=== PATIENT | male | born 1995 ===

== ENCOUNTER 2019-01-23 16:38 | Emergency (ER) | payer OTHER ==
[2019-01-23 17:57] VITALS: RESP 18
--- NOTE | 2019-01-23 18:14 | XR ---
EXAMINATION: XR chest 2V DATE AND TIME: 01/23/2019 6:05 PM CLINICAL INDICATION: PHH; cough TECHNIQUE: Departmental protocol COMPARISON: None FINDINGS: The lungs are clear. The pleural spaces are negative. The cardiac silhouette is not enlarged. The remainder of the mediastinal silhouette is unremarkable. The skeletal structures and soft tissues are negative for acute findings. IMPRESSION: NO ACUTE PROCESS.
--- NOTE | 2019-01-23 21:22 | ED ---
General Adult HPI - General Chief complaint: Upper Respiratory Infection Stated complaint: poss pneumonia Time Seen by Provider: 01/23/19 21:07 Source: patient Mode of arrival: ambulatory Limitations: language barrier - History of Present Illness Initial comments: 23-year-old male presenting to the emergency department for hemoptysis. Patient states that over the last 3 days he has had a cough. Today he coughed up a small amount of blood, which worsened later in the afternoon. He admits to pleuritic chest pain and shortness of breath while coughing. He denies any history of DVT/PE, recent surgery, active cancer, history of HI, history of easy bleeding, any blood thinner use. Patient states she's also been having intermittent abdominal pain and has a history of pancreatitis secondary to alcohol abuse. He is currently in rehab for his alcoholism. - Related Data Home Medications Medication Instructions Recorded Confirmed Acetaminophen Tab [Tylenol Tab] 650 mg PO Q4H PRN 01/23/19 01/23/19 Chlorpheniramine Maleate 4 mg PO Q4H PRN 01/23/19 01/23/19 [Chlor-Trimeton] Ibuprofen [Motrin] 600 mg PO Q6H PRN 01/23/19 01/23/19 Multivitamins, Thera [Multivitamin 1 tab PO DAILY@1330 01/23/19 01/23/19 (formulary)] Thiamine HCl [Vitamin B-1] 100 mg PO DAILY@1330 01/23/19 01/23/19 guaiFENesin [guaiFENesin Oral 200 mg PO Q4H PRN 01/23/19 01/23/19 Solution] traZODone HCL 50 - 150 mg PO HS 01/23/19 01/23/19 Previous Rx's Medication Instructions Recorded Doxycycline Hyclate 100 mg PO DAILY 7 Days #14 tab 01/23/19 Nicotine 21Mg/24Hr Patch [Habitrol] 1 each TRANSDERM DAILY #30 patch 01/23/19 Allergies Allergy/AdvReac Type Severity Reaction Status Date / Time No Known Allergies Allergy Verified 01/23/19 22:44 Review of Systems ROS Statement: Those systems with pertinent positive or pertinent negative responses have been documented in the HPI. Review of Systems Constitutional: Denies fever, chills Eyes: Denies change in vision, Denies pain Ears, nose, mouth, throat: Denies headaches, Denies sore throat Cardiovascular: Denies chest pain. Denies palpitations Respiratory: Positive shortness of breath, Positive cough Gastrointestinal: Denies abdominal pain. Denies nausea, vomiting, diarrhea. Genitourinary: Denies hematuria, Denies infections Musculoskeletal: Denies pain, Denies swelling Integumentary: Denies rash Neurological: Denies headache, focal weakness, focal numbness Psychiatric: Denies anxiety, Denies depression Hematologic/Lymphatic: Denies easy bleeding or bruising ROS Other: All systems not noted in ROS Statement are negative. Past Medical History Additional Past Medical History / Comment(s): pancreatitis, liver inflammation History of Any Multi-Drug Resistant Organisms: None Reported Past Psychological History: No Psychological Hx Reported Smoking Status: Current every day smoker Past Alcohol Use History: Abuse, Daily Past Drug Use History: Cocaine General Exam - General Exam Comments Initial Comments: General: Awake, alert, No acute Distress HENT: Normocephalic. Atraumatic Eyes: PERRL. EOMI. No scleral icterus. No injected conjunctiva Neck: Full ROM Chest/Lungs: Clear to auscultation bilaterally. No wheezing, rhonchi, or rales Cardiac: Regular rate, rhythm. No murmurs or rubs Abdomen/GI: Soft, nontender, nondistended. No rebound, guarding, or rigidity. Musculoskeletal: Full ROM Skin: Warm, dry, intact Neurologic: A/Ox3, no weakness, no sensory deficit, no abnormal gait, no coordination deficit Limitations: language barrier Course Vital Signs 01/23/19 01/23/19 01/24/19 17:53 22:57 00:04 Temperature 98.3 F 97.9 F Pulse Rate 75 78 Respiratory 18 18 18 Rate Blood Pressure 106/51 140/82 O2 Sat by Pulse 100 98 Oximetry Medical Decision Making - Medical Decision Making 23 yoM presenting with hemoptysis. Initial exam the patient is awake, alert, no acute distress. VSS. Patient's auditory workup was unremarkable. His CT PE was positive for a left lower lobe infiltrate. The patient was switched from the amoxicillin prescribed by another physician and placed on doxycycline. He was also counseled on the importance of tobacco cessation and was given a perception for nicotine patches. While in the department the patient had no episodes of hemoptysis. His hemoglobin was stable. He had no respiratory distress. At this time the patient is stable for outpatient treatment of his community-acquired pneumonia. He is a monitored facility and they understand return to ER instructions.No further emergent workup indicated. The patient was given return to ED instructions. They were instructed to follow up with their primary care provider. Stable for discharge at this time. - Lab Data Result diagrams: 01/23/19 21:36 01/23/19 21:36 Lab Results 01/23/19 01/23/19 Range/Units 21:36 21:36 WBC 8.1 (3.8-10.6) k/uL RBC 5.15 (4.30-5.90) m/uL Hgb 15.7 (13.0-17.5) gm/dL Hct 47.3 (39.0-53.0) % MCV 91.8 (80.0-100.0) fL MCH 30.4 (25.0-35.0) pg MCHC 33.1 (31.0-37.0) g/dL RDW 12.9 (11.5-15.5) % Plt Count 314 (150-450) k/uL Neutrophils % 43 % Lymphocytes % 27 % Monocytes % 7 % Eosinophils % 18 % Basophils % 1 % Neutrophils # 3.5 (1.3-7.7) k/uL Lymphocytes # 2.2 (1.0-4.8) k/uL Monocytes # 0.6 (0-1.0) k/uL Eosinophils # 1.4 H (0-0.7) k/uL Basophils # 0.1 (0-0.2) k/uL Sodium 140 (137-145) mmol/L Potassium 4.2 (3.5-5.1) mmol/L Chloride 102 (98-107) mmol/L Carbon Dioxide 29 (22-30) mmol/L Anion Gap 9 mmol/L BUN 7 L (9-20) mg/dL Creatinine 0.65 L (0.66-1.25) mg/dL Est GFR (CKD-EPI)AfAm >90 (>60 ml/min/1.73 sqM) Est GFR (CKD-EPI)NonAf >90 (>60 ml/min/1.73 sqM) Glucose 86 (74-99) mg/dL Calcium 9.6 (8.4-10.2) mg/dL Total Bilirubin 0.6 (0.2-1.3) mg/dL Conjugated Bilirubin 0.0 (0.0-0.3) mg/dL Unconjugated Bilirubin 0.5 (0.0-1.1) mg/dL Delta Bilirubin 0.1 (0.0-0.2) mg/dL AST 31 (17-59) U/L ALT 27 (21-72) U/L Alkaline Phosphatase 125 (38-126) U/L Total Protein 7.9 (6.3-8.2) g/dL Albumin 4.8 (3.5-5.0) g/dL Lipase 18 L (23-300) U/L Disposition Clinical Impression: Pneumonia Disposition: HOME SELF-CARE Condition: Good Instructions (If sedation given, give patient instructions): Bacterial Pneumonia (ED) Prescriptions: Doxycycline Hyclate 100 mg PO DAILY 7 Days #14 tab Nicotine 21Mg/24Hr Patch [Habitrol] 1 each TRANSDERM DAILY #30 patch Is patient prescribed a controlled substance at d/c from ED?: No Referrals: None,Stated [Primary Care Provider] - 1-2 days Rama Lopez MD [REFERRING] - 1-2 days
[2019-01-23 21:56] LABS: Basophils # (A) 0.1 k/uL (0-0.2); Basophils % (A) 1 %; Eosinophils # (A) 1.4 k/uL (0-0.7); Eosinophils % (A) 18 %; HCT 47.3 % (39.0-53.0); HGB 15.7 gm/dL (13.0-17.5); Lymphocytes # (A) 2.2 k/uL (1.0-4.8); Lymphocytes % (A) 27 %; MCH 30.4 pg (25.0-35.0); MCHC 33.1 g/dL (31.0-37.0); MCV 91.8 fL (80.0-100.0); Mean Platelet Volume 6.8; Monocytes # (A) 0.6 k/uL (0-1.0); Monocytes % (A) 7 %; Neutrophils # (A) 3.5 k/uL (1.3-7.7); Neutrophils % (A) 43 %; Platelet Count 314 k/uL (150-450); RBC 5.15 m/uL (4.30-5.90); RDW 12.9 % (11.5-15.5); WBC 8.1 k/uL (3.8-10.6)
[2019-01-23 22:07] LABS: ALT 27 U/L (21-72); AST 31 U/L (17-59); African American GFR (CKD) >90 (>60 ml/min/1.73 sqM); Albumin 4.8 g/dL (3.5-5.0); Alkaline Phosphatase 125 U/L (38-126); Anion Gap 9 mmol/L; Bilirubin, Delta 0.1 mg/dL (0.0-0.2); Bilirubin,Unconjugated 0.5 mg/dL (0.0-1.1); Blood Urea Nitrogen 7 mg/dL (9-20); Calcium 9.6 mg/dL (8.4-10.2); Carbon Dioxide 29 mmol/L (22-30); Chloride 102 mmol/L (98-107); Glucose 86 mg/dL (74-99); Lipase 18 U/L (23-300); Potassium 4.2 mmol/L (3.5-5.1); Sodium 140 mmol/L (137-145); Total Bilirubin 0.6 mg/dL (0.2-1.3); Total Protein 7.9 g/dL (6.3-8.2)
--- NOTE | 2019-01-23 22:55 | CT ---
EXAM: CT Chest With Intravenous Contrast CLINICAL HISTORY: Pain TECHNIQUE: Axial computed tomography images of the chest with 100 mL of Isovue-300 intravenous contrast. CTDI is 12.7 mGy and DLP is 714.3 mGy-cm. This CT exam was performed using one or more of the following dose reduction techniques: automated exposure control, adjustment of the mA and/or kV according to patient size, and/or use of iterative reconstruction technique. COMPARISON: No relevant prior studies available. FINDINGS: Lungs: There is a consolidation in the left lower lobe consistent with infiltrate. There is some associated pleural thickening however No evidence for effusion. No abnormal filling defect noted in the pulmonary arterial tree although this study is not optimized for evaluation of pulmonary arteries and small distal pulmonary by cannot be totally excluded. Pleural space: Unremarkable. No pneumothorax. No significant effusion. Heart: Unremarkable. No cardiomegaly. No significant pericardial effusion. Bones/joints: Unremarkable. No acute fracture. No dislocation. Soft tissues: Unremarkable. Vasculature: Unremarkable. No thoracic aortic aneurysm. Lymph nodes: Unremarkable. No enlarged lymph nodes. IMPRESSION: Area of consolidation in the left lower lobe consistent with infectious pneumonic infiltrate EXAM: CT Abdomen and Pelvis With Intravenous Contrast CLINICAL HISTORY: Pain TECHNIQUE: Axial computed tomography images of the abdomen and pelvis with 100 mL of Isovue-300 intravenous contrast. CTDI is 12.7 mGy and DLP is 714.3 mGy-cm. This CT exam was performed using one or more of the following dose reduction techniques: automated exposure control, adjustment of the mA and/or kV according to patient size, and/or use of iterative reconstruction technique. COMPARISON: No relevant prior studies available. FINDINGS: Lung bases: There is consolidation noted in the left lower lobe suspicious for infectious pneumonic process. ABDOMEN: Liver: Unremarkable. No mass. Gallbladder and bile ducts: Gallbladder is contracted No calcified stones. No ductal dilation. Pancreas: Unremarkable appearance the pancreas Spleen: Unremarkable. No splenomegaly. Adrenals: Unremarkable. No mass. Kidneys and ureters: Unremarkable. No solid mass. No hydronephrosis. Stomach and bowel: Unremarkable. No obstruction. No mucosal thickening. PELVIS: Appendix: No findings to suggest acute appendicitis. Bladder: Unremarkable. No mass. Reproductive: Unremarkable as visualized. ABDOMEN and PELVIS: Intraperitoneal space: Unremarkable. No free air. No significant fluid collection. Bones/joints: No acute fracture. No dislocation. Soft tissues: Unremarkable. Vasculature: Unremarkable. No abdominal aortic aneurysm. Lymph nodes: Unremarkable. No enlarged lymph nodes. IMPRESSION: No acute abnormality in the abdomen or pelvis. Left lower lobe infiltrate
[2019-01-23] MEDS ORDERED: cefTRIAXone IN SWFI 1,000 MG/10 ML SYRINGE IVP STA (23:27)
[2019-01-24 00:05] VITALS: BP 140/82; PULSE 78; TEMP 97.9
== END 2019-01-24 00:05 | disposition home or self-care (01) ==
LOC: EC 16:38
DX: J18.9 Pneumonia, unspecified organism (principal); F17.200 Nicotine dependence, unspecified, uncomplicated; Z79.899 Other long term (current) drug therapy
CPT/HCPCS: 36415; 80048; 80076; 83690; 85025; 71046; 71260; 74177; 99284; 96374; J0696; Q9967